=== PATIENT | female | born 1965 | race Caucasian/White ===

== ENCOUNTER 2022-07-22 09:22 | Emergency (ER) | payer OTHER ==
[2022-07-22 10:20] LABS: BASOPHIL 1.2 % (0-2); EOSINOPHIL 2.3 % (0-5); HCT 46.5 % (37.0-47.0); LYMPHOCYTE 27.7 % (15-48); MCH 30.4 pg (25.0-31.0); MCHC 34.4 g/dL (32.0-36.0); MCV 88.2 fL (78.0-100.0); MONOCYTE 7.7 % (0-12); NEUTROPHIL 60.7 % (41-80); NRBC 0; PLT 237 K/uL (150-400); RBC 5.27 M/uL (4.20-5.40); RDW 12.4 % (11.5-14.0); WBC 5.7 K/uL (4.0-10.5)
[2022-07-22 10:36] LABS: ALBUMIN 3.6 g/dL (3.4-5.0); BILIRUBIN - TOTAL 0.2 mg/dL (0.2-1.0); BUN/CREAT RATIO (CALC) 16.5 RATIO; CREATININE 0.85 mg/dL (0.51-0.95); GLOBULIN (CALCULATION) 2.6 g/dL; POTASSIUM 3.9 mmol/L (3.5-5.1); TOTAL PROTEIN 6.2 g/dL (6.4-8.2)
[2022-07-22 10:56] LABS: CORONAVIRUS 2019 SARS-COV-2 NEGATIVE (NEGATIVE); INFLUENZA A NAA NEGATIVE (NEGATIVE)
[2022-07-22] MEDS ORDERED: ANTIVERT25 MG PO ×2 (12:04→12:12)
== END 2022-07-22 12:40 | disposition home or self-care (01) ==
LOC: FER 09:22
PROVIDERS: Emergency Medicine
DX: H81.4 Vertigo of central origin (principal); Z88.0 Allergy status to penicillin; Z20.822 Contact with and (suspected) exposure to COVID-19
CPT/HCPCS: 36415; 70450; 71045; 80053; 83880; 84484; 85025; 85730; 93005; U0002